=== PATIENT | male | born 2005 | race African-American/Black ===

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

== ENCOUNTER 2024-02-20 21:43 | Emergency (ER) | payer MEDICAID, OTHER ==
[~2024-02-20] VITALS: Ht 165.1 cm; Wt 68.0 kg
[2024-02-20 21:55] VITALS: TEMP 98; O2SAT 100
[2024-02-21] MEDS ORDERED: BO1 TP (00:33)
[2024-02-21 00:42] VITALS: BP 119/83; PULSE 74; RESP 18
== END 2024-02-21 00:48 | disposition home or self-care (01) ==
LOC: ER 21:43
DX: L02.31 Cutaneous abscess of buttock (principal)
CPT/HCPCS: 99282